=== PATIENT | female | born 1970 | race Caucasian/White ===

== ENCOUNTER → 2017-07-28 | Outpatient (CLI) | payer OTHER ==
--- NOTE | 2017-07-29 07:52 | MAMMOGRAPHY REPORT ---
BILATERAL DIGITAL DIAGNOSTIC MAMMOGRAM TOMOSYNTHESIS WITH CAD AND TARGETED LEFT ULTRASOUND: 07/28/2017 CLINICAL HISTORY: 47-year-old woman presents for annual screening mammography and also follow-up ultr asound in the left breast which was recommended based on an outside report. No family history of cielo ast cancer. TECHNIQUE: Bilateral breast tomosynthesis in addition to standard 2D mammography was performed. Curr ent study was also evaluated with a Computer Aided Detection (CAD) system. COMPARISON: Comparison is made to exams dated: 01/19/2017 ultrasound, 07/31/2016 ultrasound, 6 mammogram, 07/09/2015 mammogram, and 06/07/2012 mammogram. BREAST COMPOSITION: The tissue of both breasts is heterogeneously dense, which may obscure small mas ses. FINDINGS: The glandular pattern is similar to prior mammograms. There are 2 partially circumscribed masses identified in the left breast. The first is in the medial, middle one third of the breast on the CC view measuring 7.3 mm (CC tomosynthesis slice 20/54) the second is in the lateral breast thoug ht to project along the posterior nipple line on the MLO view, measuring 11 mm (MLO tomosynthesis sli ce 19/55). No suspicious irregular or speculative mass, focal area of architectural distortion or christianson spicious calcifications are identified bilaterally. Targeted ultrasound was performed in the left breast with particular attention to the 1:00, 3:00 and 8:00 axes as noted in the prior outside report. In the 1:00 left breast, 1 cm from the nipple, at le ast 4 anechoic benign simple cysts are identified, one of which is thought to correlate with the prev iously observed mass seen on the outside ultrasound. The anechoic cysts are benign and no further cl ose follow-up is needed. However, incidentally identified in the 12:00 left breast, 4 cm from the ni pple, is a mixed echogenicity masslike area measuring 7.9 x 3.9 x 8.9 mm, and an adjacent deeper oval parallel circumscribed hypoechoic solid versus cystic mass measuring 6.5 x 3.8 x 9.1 mm. In the 1:0 0 left breast, 1 cm from the nipple, there is a small rounded isoechoic solid appearing mass measurin g 2.4 x 2.3 x 2.2 mm, and another rounded nodular hypoechoic mass measuring 3.3 mm. A dominant anech oic benign supple cyst is seen in the 2:00 left breast, 3 cm from the nipple, measuring 9.1 x 8.1 x 8 .4 mm, which is thought to correlate with the largest mammographic mass. In the 3:00 left breast, 1 cm from the nipple, there is an oval parallel circumscribed hypoechoic mass versus normal fat lobule measuring 6.6 x 3.3 x 8.0 millimeters, which is stable compared to the prior outside ultrasound. Ano ther anechoic cyst is seen in the left 5:00 breast, 1 cm from the nipple, measuring 3.9 mm. There is a bilobed mass versus 2 adjacent masses in the 6:00 periareolar left breast measuring 6.2 x 2.8 x 3. 0 mm in conglomerate. Another anechoic benign simple cyst is identified in the 8:00 left breast, 1 c m from the nipple, measuring 5.9 x 5.4 x 5.9 mm, thought to correlate with the medial mammographic ma ss. There is another circumscribed hypoechoic solid versus cystic mass in the 8:00 periareolar left breast measuring 2.8 x 3.7 x 3.4 mm. An isoechoic solid versus cystic mass in the 10:00 left breast, 2 cm from the nipple, measuring 3.5 x 3.2 x 3.3 mm. The findings previously observed in the 1:00, 3:00 and 8:00 axes are considered benign. However the newly visualized indeterminate solid versus cystic masses warrant additional follow-up. In particula r, a 6 month follow-up targeted left breast ultrasound should be performed to reassess masses in the 12:00 left breast, 4 cm from the nipple, the 1:00 left breast, 1 cm from the nipple, 6:00 left breast periareolar region, 8:00 left breast, periareolar region and 10:00 left breast, 2 cm from the nipple . IMPRESSION: ACR-BI-RADS CATEGORY 3: PROBABLY BENIGN, TARGETED ULTRASOUND ACR-BI-RADS CATEGORY 3: PRO BABLY BENIGN 1. The sonographic findings in the 1:00, 3 clock and 8:00 axis of the left breast represent benign c ysts or fat lobules and are considered benign. However there are newly visualized indeterminate kanwal d versus cystic masses throughout the left breast within the 12:00, 1:00, 6:00, 8:00 and 10:00 axes, for which a short interval follow-up targeted left breast ultrasound is recommended to ensure stabili ty in 6 months. 2. At the time of left breast follow up, complete right breast ultrasund could also be performed (30 minutes). 3. No new suspicious mammographic abnormality to suggest malignancy. The overall findings with sathish gn-appearing circumscribed masses and benign appearing sonographic findings in the left breast most l ikely represent benign fibrocystic change. Would recommend routine screening tomosynthesis mammograp hy in one year. These results and recommendations were discussed with the patient at the time of the exam. Approximately 10% of breast cancers are not detected with mammography. A negative mammographic report should not delay biopsy if a clinically suggestive mass is present. Jesenia Guallpa M.D. ay/:07/28/2017 12:35:46 Outside Sales Associate: Cliff GOMEZ(Marcela)(Yaakov), [facility] letter sent: Follow Up Recommended 3 BI-RADS Code: ACR-BI-RADS Category 3: Probably Benign Ultrasound BI-RADS: ACR-BI-RADS Category 3: Pr obably Benign
== END | disposition home or self-care (01) ==
LOC: C.MAMM 10:53
PROVIDERS: ATTEND Family Medicine
DX: R92.2 Inconclusive mammogram (principal)

== ENCOUNTER → 2017-08-31 | Outpatient (CLI) | payer OTHER | END | disposition home or self-care (01) | LOC: C.PAPS 11:09 | PROVIDERS: ATTEND Physician Assistant | DX: Z12.4 Encounter for screening for malignant neoplasm of cervix (principal) ==

== ENCOUNTER → 2018-01-24 | Outpatient (CLI) | payer OTHER ==
--- NOTE | 2018-01-26 15:08 | MAMMOGRAPHY REPORT ---
ULTRASOUND OF BOTH BREASTS: 01/24/2018 CLINICAL HISTORY: Patient presents for follow-up targeted ultrasound in the left breast for previousl y observed benign-appearing solid versus cystic masses. Also complete/whole breast ultrasound of the right breast given the heterogeneously dense breasts. COMPARISON: Comparison is made to exams dated: 07/28/2017 mammogram, 07/28/2017 ultrasound - [facility], 01/19/2017 ultrasound, 07/31/2016 ultrasound, 07/10/2016 mammogram, and 07/09/2015 mammogram. FINDINGS: Targeted ultrasound was performed in the left breast with particular attention to the 12:00 , 1:00, 6:00, 8:00 and 10:00 axes. In the 12:00 breast, 4 cm from the nipple, there is a mixed echog enicity solid-appearing mass versus stromal fibrosis measuring 7.0 x 3.7 x 9.5 mm, previously measure d 7.9 x 3.9 x 9.0 mm, and is unchanged. In the 1:00 axis, 1 cm from the nipple, there is a round cir cumscribed slightly hypoechoic solid versus cystic mass measuring 3.1 x 2.0 x 2.6 mm, previously matt ured 2.4 x 2.3 x 2.2 mm and given slight differences in measuring technique is considered unchanged. Incidental note is made of a benign anechoic simple cyst in the 12:00 left breast, 4 cm from the nip ple measuring 7.4 mm, and another benign cyst in the 1:00 periareolar left breast measuring 6.8 mm. In the 6:00 periareolar left breast, there is a bilobed hypoechoic solid versus cystic mass with mild posterior acoustic enhancement appreciated, measuring 7.0 x 2.8 x 3.0 mm, this previously measured 6 .2 x 2.8 x 3.0 mm and is unchanged. In the 8:00 periareolar left breast, there is an oval circumscri bed hypoechoic solid versus cystic mass measuring 2.2 x 2.7 x 3.1 mm. This has decreased in size com paring to the prior ultrasound at which time it measured 2.8 x 3.7 x 3.4 mm. There is an isoechoic a ngular solid-appearing mass in the 10:00 left breast, 2 cm from the nipple, measuring 4.6 x 3.3 x 3.4 mm, previously measured 3.5 x 3.2 x 3.3 mm. Given the possible minimal increase in size and angular margins, this mass is indeterminate and definitive characterization with an ultrasound-guided core b iopsy is recommended. Real-time high resolution sonographic evaluation was performed throughout the right breast. The scar st parenchymal echotexture is heterogeneousdense. There is a lobulated hypoechoic and isoechoic eric ign-appearing solid mass versus focal stromal fibrosis in the 1:00 right breast, 4 cm from the nipple , measuring approximately 6.3 x 3.0 by 2.7 mm. An oval parallel circumscribed hypoechoic solid versu s cystic mass in the 1:00 right breast, 1 cm from the nipple measures 3.7 x 2.5 x 3.4 mm. A tiny hyp oechoic round circumscribed solid versus cystic mass in the 2:00 right breast, 7 cm from the nipple, measures 2.0 x 1.9 x 3.3 mm. A lobulated hypoechoic solid versus cystic mass in the 4:00 right breas t, 2 cm from the nipple measures 5.0 x 3.5 by 4.4 mm. A circumscribed round hypoechoic cystic-appear ing mass with posterior acoustic enhancement in the 8:00 right breast, 2 cm from the nipple, measures 2.7 x 2.4 by 2.8 mm. A probable round circumscribed hypoechoic cyst in the 11:00 right breast, 4 cm from the nipple, which measures 2.2 x 2.0 to 2.9 mm. There are also several anechoic benign simple cysts in the right breast, particularly within the 12:00, 1:00 and 9:00 axes. IMPRESSION: ACR BI-RADS CATEGORY 4: SUSPICIOUS - FOLLOW-UP RECOMMENDED 1. Ultrasound-guided core biopsy is recommended for an angular isoechoic solid-appearing mass in the 10:00 left breast that has possibly minimally increased in size comparing to the prior ultrasound. 2. A previously observed solid versus cystic mass in the 8:00 left breast has decreased in size, con firming benignity. No further close follow-up is needed at this time. 3. There are benign-appearing solid, solid versus cystic and probable cystic masses throughout the r ight breast for which a repeat targeted ultrasound is recommended in 6 months, with particular attent ion to the 1:00, 2:00, 4:00, 8:00 and 11:00 axes. At that time, repeat attention in the left 12:00, 1:00 and 6:00 axes is also recommended. 4. Annual bilateral screening mammography is also due in July 2018. These results and recommendations were discussed with the patient at the time of the exam. She will call in to schedule her biopsy at a later date. Jesenia Guallpa M.D. ay/:01/25/2018 15:46:11 Hand Fretted Instrument Maker: Dr. Jesenia Guallpa, [facility] letter sent: Abnormal 4/5 BI-RADS Code: ACR BI-RADS Category 4: Suspicious
== END | disposition home or self-care (01) ==
LOC: C.MAMM 10:09
PROVIDERS: ATTEND Family Medicine
DX: R92.2 Inconclusive mammogram (principal); N63.20 Unspecified lump in the left breast, unspecified quadrant; N63.10 Unspecified lump in the right breast, unspecified quadrant